=== PATIENT | male | born 1970 ===

== ENCOUNTER 2021-11-12 08:43 | Inpatient (IN) ==
[~2021-11-12 08:43] MED LIST: cefTRIAXone 1,000 MG in SODIUM CHLORIDE 0.9% 100 ML IV ONE
[2021-11-12 08:55] LABS: Basophils % 0.2 % (0.0-0.8); Hematocrit 36.7 VOL% (42.0-52.0); Hemoglobin 12.1 GM/DL (14.0-18.0); Lymphocytes # 1.5 10*3/uL (1.4-4.0); Lymphocytes % 8.9 % (21.2-54.2); Mean Corpuscular Volume 80.3 FL (87-102); Mean Platelet Volume 9.3 FL (9.6-12.0); Monocytes % 2.6 % (1.7-12.7); Neutrophils % 87.5 % (38.7-73.9); Platelet Count 169 T/CUMM (130-400); Red Blood Count 4.57 MC/CUMM (3.8-5.5); Red Cell Distribution Width 18.6 % (9.3-17.3); White Blood Count 16.8 T/CUMM (4-12)
[2021-11-12 09:29] LABS: Lymphocytes 7 % (20-55); Platelet Estimate Adequate; Segmented Neutrophils 91 % (50-85)
[2021-11-12 09:30] LABS: Albumin 2.6 G/DL (3.4-5.0); Bilirubin,Total 0.6 MG/DL (0.20-1.00); Calcium 9.3 MG/DL (8.5-10.1); Osmolality,Calculated 337.1 MOS/KG (273-304); Total Protein 7.8 G/DL (6.4-8.2)
[2021-11-12 09:36] LABS: Potassium 7.2 MMOL/L (3.5-5.1)
[2021-11-12] MEDS ORDERED: DEXTROSE 50% 25 GM/50 ML SYRINGE IV ONE ×2 (10:12→18:30)
[2021-11-12] MEDS ORDERED: DEXTROSE 50% 25 GM/50 ML VIAL IV ONE (10:17)
[2021-11-12] MEDS ORDERED: SODIUM CHLORIDE 0.9% 250 ML IV SCH (10:30)
[2021-11-12 10:42] LABS: Albumin 2.7 G/DL (3.4-5.0); Bilirubin,Total 0.4 MG/DL (0.20-1.00); Calcium 9.4 MG/DL (8.5-10.1); Total Protein 8.1 G/DL (6.4-8.2)
[2021-11-12 10:45] LABS: Potassium 7.4 MMOL/L (3.5-5.1)
[2021-11-12 10:54] LABS: Osmolality,Calculated 335.2 MOS/KG (273-304)
[2021-11-12] MEDS ORDERED: DEXTROSE 50% 25 GM/50 ML VIAL IV STA (11:28)
[2021-11-12] MEDS ORDERED: INSULIN REGULAR 100 UNIT/ML IV ONE ×2 (11:29→18:10)
[2021-11-12] MEDS ORDERED: SODIUM BICARBONATE 50 MEQ/50 ML VIAL IV STA (11:30)
[2021-11-12] MEDS ORDERED: INSULIN REGULAR 10 UNIT, CALCIUM GLUCONATE 1,000 MG in DEXTROSE 10% 250 ML IV ONE (11:30)
[2021-11-12] MEDS ORDERED: CALCIUM CHLORIDE 1,000 MG in SODIUM CHLORIDE 0.9% 100 ML IV ONE (11:30)
[2021-11-12] MEDS ORDERED: DEXTROSE 50% 25 GM/50 ML SYRINGE IV STA (11:32)
[2021-11-12] MEDS ORDERED: CALCIUM GLUCONATE RIDER 1,000 MG/50 ML PREMIX IV ONE (12:00)
[2021-11-12] MEDS: SODIUM ZIRCONIUM CYCLOSILICATE 10 GM PACK PO SCH ×3 (12:20→20:50)
[2021-11-12] MEDS ORDERED: ALBUTEROL 2.5 MG/3 ML NEB RESP TX PRN (12:27)
[2021-11-12] MEDS ORDERED: hydrALAZINE 20 MG/1 ML VIAL IV PRN ×2 (12:27→17:54)
[2021-11-12] MEDS ORDERED: ONDANSETRON 4 MG/2 ML VIAL IV PRN (12:27)
[2021-11-12] MEDS ORDERED: SODIUM CHLORIDE 0.9% 1,000 ML IV SCH (12:30)
[2021-11-12] MEDS ORDERED: LEVALBUTEROL TARTRATE INH PRN (12:31)
[2021-11-12] MEDS ORDERED: SODIUM CHLORIDE 0.9% 500 ML IV ONE (12:33)
[2021-11-12 14:12] LABS: Calcium 9.6 MG/DL (8.5-10.1); Osmolality,Calculated 333.4 MOS/KG (273-304)
[2021-11-12 14:13] LABS: Risk Ratio 2.93; VLDL Cholesterol 6.4 MG/DL
[2021-11-12 14:22] LABS: Potassium 6.3 MMOL/L (3.5-5.1)
[2021-11-12 14:46] LABS: Bacteria,Urine Occasional /HPF (Few); Bilirubin,Urine Negative (Negative); Blood, Urine Moderate mg/dL (Negative); Glucose,Urine (UA) Negative (Negative); Ketones,Urine Negative (Negative); Mucus,Urine Occasional /LPF (Occasional); Nitrite,Urine Negative (Negative); Protein,Urine 30 MG/DL; RBC,Urine 53 /HPF (0-4); Urine Appearance CLEAR (Clear); Urine Color Straw (Yellow); Urine Urobilinogen < 2.0 EU/DL (<2.0)
[2021-11-12] MEDS: HEPARIN 5,000 UNIT/1 ML VIAL SUBCUT SCH (15:57)
[2021-11-12] MEDS: SODIUM CHLORIDE 23.4% CONC INJ 38.5 MEQ, SODIUM BICARB INJ 100 MEQ in STERILE WATER INJ... IV SCH (16:42)
[2021-11-12 17:47] LABS: Calcium 9.2 MG/DL (8.5-10.1); Osmolality,Calculated 328.7 MOS/KG (273-304)
[2021-11-12] MEDS ORDERED: hydrALAZINE 20 MG/1 ML VIAL IV ONE (17:53)
[2021-11-12 18:07] LABS: Potassium 6.8 MMOL/L (3.5-5.1)
[2021-11-12] MEDS ORDERED: SODIUM BICARBONATE 50 MEQ/50 ML VIAL IV ONE (18:10)
[2021-11-12] MEDS: cloNIDine 0.1 MG TABLET PO SCH (18:51)
[2021-11-13] MEDS: SODIUM CHLORIDE 23.4% CONC INJ 38.5 MEQ, SODIUM BICARB INJ 100 MEQ in STERILE WATER INJ... IV SCH (01:39)
[2021-11-13] MEDS: cloNIDine 0.1 MG TABLET PO SCH ×3 (02:44→17:40)
[2021-11-13] MEDS: HEPARIN 5,000 UNIT/1 ML VIAL SUBCUT SCH ×2 (02:44→11:50)
[2021-11-13 05:29] LABS: Basophils % 0.1 % (0.0-0.8); Hematocrit 31.8 VOL% (42.0-52.0); Hemoglobin 10.9 GM/DL (14.0-18.0); Lymphocytes # 1.7 10*3/uL (1.4-4.0); Lymphocytes % 8.3 % (21.2-54.2); Mean Corpuscular HGB Conc 34.3 GM/DL (32-36); Mean Corpuscular Volume 77.9 FL (87-102); Monocytes % 4.3 % (1.7-12.7); Neutrophils % 86.3 % (38.7-73.9); Platelet Count 163 T/CUMM (130-400); Red Blood Count 4.08 MC/CUMM (3.8-5.5); Red Cell Distribution Width 18.1 % (9.3-17.3); White Blood Count 20.5 T/CUMM (4-12)
[2021-11-13 05:54] LABS: Calcium 8.2 MG/DL (8.5-10.1); Osmolality,Calculated 322.4 MOS/KG (273-304); Potassium 5.7 MMOL/L (3.5-5.1)
[2021-11-13 06:15] LABS: Burr Cells Slight; Hypochromia Slight; Lymphocytes 7 % (20-55); Microcytosis Slight; Ovalocytes Slight; Platelet Estimate Adequate; Segmented Neutrophils 92 % (50-85); Total Cells Counted 100
[2021-11-13] MEDS: SODIUM ZIRCONIUM CYCLOSILICATE 10 GM PACK PO SCH ×2 (08:43→16:32)
[2021-11-13] MEDS: PANTOPRAZOLE 40 MG TABLET PO SCH (08:44)
[2021-11-13] MEDS: amLODIPine 10 MG TABLET PO SCH (08:44)
[2021-11-13] MEDS: cefTRIAXone 1,000 MG in SODIUM CHLORIDE 0.9% 100 ML IV SCH (09:13)
[2021-11-13] MEDS: SODIUM BICARB INJ 150 MEQ in STERILE WATER INJ 850 ML IV SCH ×2 (09:14→17:35)
[2021-11-13 10:05] LABS: INR 1.1
[2021-11-13] MEDS ORDERED: DIAZEPAM 5 MG TABLET PO ONE (13:47)
[2021-11-13] MEDS ORDERED: MIDAZOLAM 2 MG/2 ML VIAL IV ONE (14:00)
[2021-11-13] MEDS ORDERED: fentaNYL 100 MCG/2 ML VIAL IV ONE (14:00)
[2021-11-13] MEDS ORDERED: MIDAZOLAM 2 MG/2 ML VIAL ONE (14:23)
[2021-11-13] MEDS ORDERED: fentaNYL 100 MCG/2 ML VIAL ONE (14:23)
[2021-11-13] MEDS ORDERED: POTASSIUM CHLORIDE 20 MEQ TABLET PO PRN (18:05)
[2021-11-13] MEDS ORDERED: MAGNESIUM SULF RIDER 2 GM/50 ML PREMIX IV PRN (18:06)
[2021-11-13 18:49] LABS: Alanine Aminotransferase 32 U/L (16-61); Albumin 2.6 G/DL (3.4-5.0); Alkaline Phosphatase 63 U/L (45-117); Aspartate Amino Transferase 25 U/L (0-37); Bilirubin,Total < 0.39 MG/DL (0.20-1.00); Blood Urea Nitrogen 189 MG/DL (7-18); Calcium 8.4 MG/DL (8.5-10.1); Carbon Dioxide 20 MMOL/L (21-32); Estimated Glom Filtration Rate 6 ML/MIN; Glucose 141 MG/DL (74-106); Osmolality,Calculated 334.1 MOS/KG (273-304); Potassium 4.7 MMOL/L (3.5-5.1); Sodium 135 MMOL/L (136-145); Total Protein 7.1 G/DL (6.4-8.2)
[2021-11-13 22:29] LABS: Calcium 7.9 MG/DL (8.5-10.1); Osmolality,Calculated 321.7 MOS/KG (273-304); Potassium 4.9 MMOL/L (3.5-5.1)
[2021-11-14] MEDS: cloNIDine 0.1 MG TABLET PO SCH ×3 (01:19→17:55)
[2021-11-14] MEDS: HEPARIN 5,000 UNIT/1 ML VIAL SUBCUT SCH ×3 (01:20→23:49)
[2021-11-14 02:17] LABS: Basophils % 0.1 % (0.0-0.8); Eosinophils % 0.3 % (0.00-10.9); Hematocrit 31.7 VOL% (42.0-52.0); Immature Granulocytes % 0.7 %; Lymphocytes # 1.8 10*3/uL (1.4-4.0); Mean Corpuscular HGB Conc 34.7 GM/DL (32-36); Mean Corpuscular Volume 76.8 FL (87-102); Mean Platelet Volume 10.3 FL (9.6-12.0); Monocytes % 5.9 % (1.7-12.7); Platelet Count 180 T/CUMM (130-400); Red Blood Count 4.13 MC/CUMM (3.8-5.5); Red Cell Distribution Width 18.1 % (9.3-17.3); White Blood Count 14.1 T/CUMM (4-12)
[2021-11-14 02:39] LABS: Potassium 4.6 MMOL/L (3.5-5.1)
[2021-11-14] MEDS: SODIUM BICARB INJ 150 MEQ in STERILE WATER INJ 850 ML IV SCH (02:50)
[2021-11-14 03:19] LABS: Acanthocytes 1+
[2021-11-14 05:53] LABS: Osmolality,Calculated 335.7 MOS/KG (273-304); Potassium 4.5 MMOL/L (3.5-5.1)
[2021-11-14] MEDS: amLODIPine 10 MG TABLET PO SCH (08:04)
[2021-11-14] MEDS: PANTOPRAZOLE 40 MG TABLET PO SCH (08:04)
[2021-11-14] MEDS: cefTRIAXone 1,000 MG in SODIUM CHLORIDE 0.9% 100 ML IV SCH (08:05)
[2021-11-14] MEDS: ACETAMINOPHEN 325 MG TABLET PO PRN (08:10)
[2021-11-14] MEDS: SODIUM CHLORIDE 0.45% 1,000 ML IV SCH ×2 (08:59→17:03)
[2021-11-14 10:31] LABS: Calcium 7.9 MG/DL (8.5-10.1); Potassium 4.3 MMOL/L (3.5-5.1)
[2021-11-14 14:21] LABS: Calcium 7.4 MG/DL (8.5-10.1); Osmolality,Calculated 328.7 MOS/KG (273-304); Potassium 4.5 MMOL/L (3.5-5.1)
[2021-11-14 18:46] LABS: Calcium 7.7 MG/DL (8.5-10.1); Osmolality,Calculated 318.1 MOS/KG (273-304); Potassium 4.4 MMOL/L (3.5-5.1)
[2021-11-14 23:02] LABS: Calcium 7.3 MG/DL (8.5-10.1); Osmolality,Calculated 324.8 MOS/KG (273-304); Potassium 4.4 MMOL/L (3.5-5.1)
[2021-11-15] MEDS: SODIUM CHLORIDE 0.45% 1,000 ML IV SCH ×3 (00:14→20:53)
[2021-11-15] MEDS: cloNIDine 0.1 MG TABLET PO SCH ×3 (02:52→17:00)
[2021-11-15 05:27] LABS: Basophils % 0.2 % (0.0-0.8); Eosinophils % 0.3 % (0.00-10.9); Hematocrit 29.7 VOL% (42.0-52.0); Hemoglobin 9.7 GM/DL (14.0-18.0); Immature Granulocytes % 0.7 %; Immature Granulocytes Absolute 0.09 #; Lymphocytes # 2.3 10*3/uL (1.4-4.0); Lymphocytes % 18.8 % (21.2-54.2); Mean Corpuscular HGB Conc 32.7 GM/DL (32-36); Mean Corpuscular Volume 80.1 FL (87-102); Mean Platelet Volume 10.5 FL (9.6-12.0); Monocytes % 12.2 % (1.7-12.7); Neutrophils % 67.8 % (38.7-73.9); Platelet Count 179 T/CUMM (130-400); Red Blood Count 3.71 MC/CUMM (3.8-5.5); Red Cell Distribution Width 18.1 % (9.3-17.3); White Blood Count 12.1 T/CUMM (4-12)
[2021-11-15 05:52] LABS: Calcium 7.9 MG/DL (8.5-10.1); Osmolality,Calculated 319.5 MOS/KG (273-304); Potassium 4.4 MMOL/L (3.5-5.1)
[2021-11-15 06:10] LABS: Acanthocytes Few; Anisocytosis 1+; Burr Cells Few; Platelet Estimate Normal; Poikilocytosis 1+
[2021-11-15] MEDS ORDERED: SODIUM CHLORIDE 0.45% 1,000 ML IV SCH (10:30)
[2021-11-15] MEDS ORDERED: DIAZEPAM 5 MG TABLET PO ONE (11:30)
[2021-11-15] MEDS ORDERED: fentaNYL 100 MCG/2 ML VIAL IV ONE (12:00)
[2021-11-15] MEDS ORDERED: MIDAZOLAM 2 MG/2 ML VIAL IV ONE (12:00)
[2021-11-15] MEDS: cefTRIAXone 1,000 MG in SODIUM CHLORIDE 0.9% 100 ML IV SCH (12:02)
[2021-11-15] MEDS: PANTOPRAZOLE 40 MG TABLET PO SCH (14:17)
[2021-11-15] MEDS: amLODIPine 10 MG TABLET PO SCH (14:17)
[2021-11-15] MEDS: HEPARIN 5,000 UNIT/1 ML VIAL SUBCUT SCH (17:00)
[2021-11-15] MEDS: SODIUM BICARBONATE 650 MG TABLET PO SCH (20:53)
[2021-11-16] MEDS: cloNIDine 0.1 MG TABLET PO SCH ×4 (02:27→18:19)
[2021-11-16] MEDS: SODIUM CHLORIDE 0.45% 1,000 ML IV SCH ×3 (02:43→23:22)
[2021-11-16 05:14] LABS: Basophils # 0.1 10*3/uL (0.0-0.2); Basophils % 0.4 % (0.0-0.8); Eosinophils # 0.2 10*3/uL (0.0-0.87); Eosinophils % 1.2 % (0.00-10.9); Hematocrit 29.8 VOL% (42.0-52.0); Hemoglobin 9.7 GM/DL (14.0-18.0); Immature Granulocytes % 0.7 %; Immature Granulocytes Absolute 0.08 #; Lymphocytes # 2.5 10*3/uL (1.4-4.0); Lymphocytes % 20.3 % (21.2-54.2); Mean Corpuscular HGB Conc 32.6 GM/DL (32-36); Mean Corpuscular Volume 81.4 FL (87-102); Monocytes % 10.1 % (1.7-12.7); Neutrophils % 67.3 % (38.7-73.9); Platelet Count 173 T/CUMM (130-400); Red Blood Count 3.66 MC/CUMM (3.8-5.5); Red Cell Distribution Width 18.3 % (9.3-17.3); White Blood Count 12.1 T/CUMM (4-12)
[2021-11-16 05:40] LABS: Calcium 8.6 MG/DL (8.5-10.1); Osmolality,Calculated 295.4 MOS/KG (273-304); Potassium 4.5 MMOL/L (3.5-5.1)
[2021-11-16] MEDS: HEPARIN 5,000 UNIT/1 ML VIAL SUBCUT SCH ×2 (06:13→18:18)
[2021-11-16] MEDS: amLODIPine 10 MG TABLET PO SCH (09:02)
[2021-11-16] MEDS: PANTOPRAZOLE 40 MG TABLET PO SCH (09:02)
[2021-11-16] MEDS: cefTRIAXone 1,000 MG in SODIUM CHLORIDE 0.9% 100 ML IV SCH (09:02)
[2021-11-16] MEDS: SODIUM BICARBONATE 650 MG TABLET PO SCH ×2 (09:02→20:52)
[2021-11-17] MEDS: cloNIDine 0.1 MG TABLET PO SCH ×3 (02:29→17:30)
[2021-11-17] MEDS: HEPARIN 5,000 UNIT/1 ML VIAL SUBCUT SCH (06:00)
[2021-11-17] MEDS: SODIUM BICARBONATE 650 MG TABLET PO SCH ×2 (08:49→21:18)
[2021-11-17] MEDS: PANTOPRAZOLE 40 MG TABLET PO SCH (08:49)
[2021-11-17] MEDS: amLODIPine 10 MG TABLET PO SCH (08:49)
[2021-11-17] MEDS: cefTRIAXone 1,000 MG in SODIUM CHLORIDE 0.9% 100 ML IV SCH (09:44)
[2021-11-17] MEDS: SODIUM CHLORIDE 0.45% 1,000 ML IV SCH (17:28)
[2021-11-18] MEDS: cloNIDine 0.1 MG TABLET PO SCH ×2 (02:50→09:43)
[2021-11-18] MEDS: SODIUM CHLORIDE 0.45% 1,000 ML IV SCH (04:30)
[2021-11-18 07:05] LABS: Basophils % 0.3 % (0.0-0.8); Eosinophils # 0.1 10*3/uL (0.0-0.87); Eosinophils % 0.8 % (0.00-10.9); Hematocrit 26.4 VOL% (42.0-52.0); Hemoglobin 8.5 GM/DL (14.0-18.0); Immature Granulocytes % 0.7 %; Immature Granulocytes Absolute 0.09 #; Lymphocytes # 2.1 10*3/uL (1.4-4.0); Lymphocytes % 16.4 % (21.2-54.2); Mean Corpuscular HGB Conc 32.2 GM/DL (32-36); Mean Platelet Volume 10.2 FL (9.6-12.0); Monocytes % 10.4 % (1.7-12.7); Neutrophils % 71.4 % (38.7-73.9); Platelet Count 227 T/CUMM (130-400); Red Blood Count 3.18 MC/CUMM (3.8-5.5); Red Cell Distribution Width 17.8 % (9.3-17.3)
[2021-11-18 07:29] LABS: Calcium 8.7 MG/DL (8.5-10.1); Osmolality,Calculated 276.7 MOS/KG (273-304); Potassium 4.1 MMOL/L (3.5-5.1)
[2021-11-18] MEDS: cefTRIAXone 1,000 MG in SODIUM CHLORIDE 0.9% 100 ML IV SCH (09:43)
[2021-11-18] MEDS: SODIUM BICARBONATE 650 MG TABLET PO SCH ×2 (09:43→21:56)
[2021-11-18] MEDS: PANTOPRAZOLE 40 MG TABLET PO SCH (09:43)
[2021-11-18] MEDS: amLODIPine 10 MG TABLET PO SCH (09:43)
[2021-11-18] MEDS ORDERED: GLUCAGON 1 MG VIAL IM PRN (11:46)
[2021-11-18] MEDS ORDERED: DEXTROSE 10% 25 GM/250 ML BAG IV PRN (11:50)
[2021-11-18] MEDS: SODIUM BICARB INJ 100 MEQ in SODIUM CHLORIDE 0.45% 1,000 ML IV SCH (11:59)
[2021-11-18] MEDS: INSULIN LISPRO 100 UNIT/ML SUBCUT SCH ×3 (11:59→22:12)
[2021-11-19] MEDS: SODIUM BICARB INJ 100 MEQ in SODIUM CHLORIDE 0.45% 1,000 ML IV SCH (02:56)
[2021-11-19 06:46] LABS: Basophils % 0.2 % (0.0-0.8); Eosinophils # 0.1 10*3/uL (0.0-0.87); Eosinophils % 0.4 % (0.00-10.9); Hematocrit 25.1 VOL% (42.0-52.0); Immature Granulocytes % 0.5 %; Immature Granulocytes Absolute 0.06 #; Lymphocytes # 1.5 10*3/uL (1.4-4.0); Lymphocytes % 12.1 % (21.2-54.2); Mean Corpuscular HGB Conc 31.9 GM/DL (32-36); Mean Corpuscular Volume 82.8 FL (87-102); Mean Platelet Volume 9.7 FL (9.6-12.0); Monocytes % 9.5 % (1.7-12.7); Neutrophils % 77.3 % (38.7-73.9); Platelet Count 252 T/CUMM (130-400); Red Blood Count 3.03 MC/CUMM (3.8-5.5); Red Cell Distribution Width 17.3 % (9.3-17.3)
[2021-11-19 07:07] LABS: Calcium 9.4 MG/DL (8.5-10.1); Osmolality,Calculated 269.9 MOS/KG (273-304); Potassium 4.6 MMOL/L (3.5-5.1)
[2021-11-19] MEDS: INSULIN LISPRO 100 UNIT/ML SUBCUT SCH ×4 (09:20→21:53)
[2021-11-19] MEDS: PANTOPRAZOLE 40 MG TABLET PO SCH (09:23)
[2021-11-19] MEDS: SODIUM BICARBONATE 650 MG TABLET PO SCH ×3 (09:23→21:55)
[2021-11-19] MEDS: cefTRIAXone 1,000 MG in SODIUM CHLORIDE 0.9% 100 ML IV SCH (09:23)
[2021-11-19] MEDS: amLODIPine 10 MG TABLET PO SCH (09:23)
[2021-11-19] MEDS: ACETAMINOPHEN 325 MG TABLET PO PRN (21:53)
[2021-11-19] MEDS: LEVOFLOXACIN 500 MG TABLET PO SCH (21:54)
[2021-11-20 05:34] LABS: Basophils # 0.1 10*3/uL (0.0-0.2); Basophils % 0.3 % (0.0-0.8); Eosinophils # 0.1 10*3/uL (0.0-0.87); Eosinophils % 0.6 % (0.00-10.9); Hematocrit 27.9 VOL% (42.0-52.0); Hemoglobin 9.1 GM/DL (14.0-18.0); Immature Granulocytes % 0.6 %; Immature Granulocytes Absolute 0.08 #; Lymphocytes # 1.5 10*3/uL (1.4-4.0); Mean Corpuscular HGB Conc 32.6 GM/DL (32-36); Mean Corpuscular Volume 82.3 FL (87-102); Mean Platelet Volume 9.3 FL (9.6-12.0); Monocytes % 8.2 % (1.7-12.7); Neutrophils % 80.3 % (38.7-73.9); Platelet Count 332 T/CUMM (130-400); Red Blood Count 3.39 MC/CUMM (3.8-5.5); Red Cell Distribution Width 17.2 % (9.3-17.3); White Blood Count 14.4 T/CUMM (4-12)
[2021-11-20 05:57] LABS: Calcium 8.8 MG/DL (8.5-10.1); Osmolality,Calculated 277.5 MOS/KG (273-304); Potassium 4.8 MMOL/L (3.5-5.1)
[2021-11-20 05:59] LABS: Alanine Aminotransferase 34 U/L (16-61); Albumin 2.8 G/DL (3.4-5.0); Alkaline Phosphatase 68 U/L (45-117); Aspartate Amino Transferase 29 U/L (0-37); Bilirubin,Total < 0.39 MG/DL (0.20-1.00); Blood Urea Nitrogen 55 MG/DL (7-18); Calcium 9.2 MG/DL (8.5-10.1); Carbon Dioxide 22 MMOL/L (21-32); Estimated Glom Filtration Rate 30 ML/MIN; Glucose 102 MG/DL (74-106); Osmolality,Calculated 274.8 MOS/KG (273-304); Potassium 5.1 MMOL/L (3.5-5.1); Sodium 130 MMOL/L (136-145); Total Protein 7.7 G/DL (6.4-8.2)
[2021-11-20] MEDS ORDERED: SODIUM PHOSPHATE ENEMA 133 ML BOTTLE RECTAL ONE (07:00)
[2021-11-20] MEDS: INSULIN LISPRO 100 UNIT/ML SUBCUT SCH ×4 (07:26→20:31)
[2021-11-20] MEDS: LEVOFLOXACIN 500 MG TABLET PO SCH (09:36)
[2021-11-20] MEDS: PANTOPRAZOLE 40 MG TABLET PO SCH (09:36)
[2021-11-20] MEDS: amLODIPine 10 MG TABLET PO SCH (09:36)
[2021-11-20] MEDS: SODIUM BICARBONATE 650 MG TABLET PO SCH ×3 (09:37→20:35)
[2021-11-20] MEDS: cefTRIAXone 1,000 MG in SODIUM CHLORIDE 0.9% 100 ML IV SCH (09:57)
[2021-11-20] MEDS ORDERED: MIDAZOLAM 2 MG/2 ML VIAL ONE (12:04)
[2021-11-20] MEDS ORDERED: fentaNYL 100 MCG/2 ML VIAL ONE ×2 (12:04→13:34)
[2021-11-20] MEDS ORDERED: SEVOFLURANE 1 UNIT/15 MINUTE INH ONE ×9 (12:05→14:40)
[2021-11-20] MEDS ORDERED: propofoL 200 MG/20 ML VIAL IV ONE (12:05)
[2021-11-20] MEDS ORDERED: LIDOCAINE 2% 5 ML VIAL ONE (12:05)
[2021-11-20] MEDS ORDERED: ONDANSETRON 4 MG/2 ML VIAL ONE (12:05)
[2021-11-20] MEDS ORDERED: NEOMYCIN/POLYMYXIN IRRIG SOLN 1 ML AMP BLADDERIRR ONE (12:55)
[2021-11-20] MEDS ORDERED: PHENYLEPHRINE 10 MG/1 ML VIAL IV ONE (12:57)
[2021-11-20] MEDS ORDERED: LEVOFLOXACIN INJ 500 MG/100 ML PREMIX IV ONE (12:58)
[2021-11-20] MEDS ORDERED: SODIUM CHLORIDE 0.9% 1,000 ML IV SCH (13:00)
[2021-11-20] MEDS ORDERED: METHYLENE BLUE 10 ML VIAL IV ONE (13:14)
[2021-11-20] MEDS ORDERED: SODIUM CHLORIDE 0.9% 250 ML IV ONE (14:30)
[2021-11-20] MEDS ORDERED: ACETAMINOPHEN INJ 1,000 MG/100 ML VIAL IV ONE (14:31)
[2021-11-20 14:41] LABS: Calcium 8.6 MG/DL (8.5-10.1); Osmolality,Calculated 282.2 MOS/KG (273-304); Potassium 5.9 MMOL/L (3.5-5.1)
[2021-11-20 15:22] LABS: Basophils % 0.1 % (0.0-0.8); Eosinophils % 0.2 % (0.00-10.9); Hematocrit 26.3 VOL% (42.0-52.0); Hemoglobin 8.3 GM/DL (14.0-18.0); Immature Granulocytes % 0.5 %; Immature Granulocytes Absolute 0.07 #; Lymphocytes # 1.4 10*3/uL (1.4-4.0); Lymphocytes % 10.3 % (21.2-54.2); Mean Corpuscular HGB Conc 31.6 GM/DL (32-36); Mean Corpuscular Volume 84.6 FL (87-102); Mean Platelet Volume 9.5 FL (9.6-12.0); Monocytes % 9.2 % (1.7-12.7); Neutrophils % 79.7 % (38.7-73.9); Platelet Count 330 T/CUMM (130-400); Red Blood Count 3.11 MC/CUMM (3.8-5.5); Red Cell Distribution Width 17.4 % (9.3-17.3); White Blood Count 13.8 T/CUMM (4-12)
[2021-11-20] MEDS: ALBUTEROL 2.5 MG/3 ML NEB RESP TX SCH ×2 (17:05→19:35)
[2021-11-20] MEDS: ACETAMINOPHEN 325 MG TABLET PO PRN (20:36)
[2021-11-20] MEDS ORDERED: LEVOFLOXACIN 500 MG TABLET PO SCH (21:00)
[2021-11-21] MEDS: ALBUTEROL 2.5 MG/3 ML NEB RESP TX SCH ×5 (00:17→19:26)
[2021-11-21 04:42] LABS: Basophils % 0.2 % (0.0-0.8); Eosinophils % 0.2 % (0.00-10.9); Hematocrit 28.2 VOL% (42.0-52.0); Hemoglobin 9.1 GM/DL (14.0-18.0); Immature Granulocytes % 0.5 %; Lymphocytes # 1.2 10*3/uL (1.4-4.0); Lymphocytes % 6.4 % (21.2-54.2); Mean Corpuscular HGB Conc 32.3 GM/DL (32-36); Mean Corpuscular Volume 83.2 FL (87-102); Mean Platelet Volume 9.5 FL (9.6-12.0); Monocytes % 5.8 % (1.7-12.7); Neutrophils % 86.9 % (38.7-73.9); Platelet Count 374 T/CUMM (130-400); Red Blood Count 3.39 MC/CUMM (3.8-5.5); Red Cell Distribution Width 17.2 % (9.3-17.3); White Blood Count 19.1 T/CUMM (4-12)
[2021-11-21 05:01] LABS: Calcium 9.7 MG/DL (8.5-10.1); Osmolality,Calculated 271.1 MOS/KG (273-304); Potassium 5.2 MMOL/L (3.5-5.1)
[2021-11-21] MEDS ORDERED: MAGNESIUM SULF RIDER 2 GM/50 ML PREMIX IV PRN (06:58)
[2021-11-21] MEDS ORDERED: MAGNESIUM SULF RIDER 4 GM/100 ML PREMIX IV PRN (06:58)
[2021-11-21] MEDS: cefTRIAXone 1,000 MG in SODIUM CHLORIDE 0.9% 100 ML IV SCH (09:40)
[2021-11-21] MEDS: amLODIPine 10 MG TABLET PO SCH (09:40)
[2021-11-21] MEDS: PANTOPRAZOLE 40 MG TABLET PO SCH (09:40)
[2021-11-21] MEDS: SODIUM BICARBONATE 650 MG TABLET PO SCH ×3 (09:40→22:31)
[2021-11-21] MEDS: INSULIN LISPRO 100 UNIT/ML SUBCUT SCH ×4 (09:44→22:31)
[2021-11-21] MEDS: DOCUSATE SODIUM 100 MG CAPSULE PO PRN (22:32)
[2021-11-22] MEDS: ALBUTEROL 2.5 MG/3 ML NEB RESP TX SCH ×4 (01:11→19:56)
[2021-11-22 06:31] LABS: Basophils # 0.1 10*3/uL (0.0-0.2); Basophils % 0.4 % (0.0-0.8); Eosinophils # 0.1 10*3/uL (0.0-0.87); Eosinophils % 0.5 % (0.00-10.9); Hematocrit 27.4 VOL% (42.0-52.0); Hemoglobin 8.9 GM/DL (14.0-18.0); Immature Granulocytes % 0.5 %; Immature Granulocytes Absolute 0.09 #; Lymphocytes # 1.5 10*3/uL (1.4-4.0); Lymphocytes % 9.2 % (21.2-54.2); Mean Corpuscular HGB Conc 32.5 GM/DL (32-36); Mean Corpuscular Volume 82.8 FL (87-102); Mean Platelet Volume 9.3 FL (9.6-12.0); Monocytes % 8.2 % (1.7-12.7); Neutrophils % 81.2 % (38.7-73.9); Platelet Count 393 T/CUMM (130-400); Red Blood Count 3.31 MC/CUMM (3.8-5.5); Red Cell Distribution Width 16.9 % (9.3-17.3); White Blood Count 16.8 T/CUMM (4-12)
[2021-11-22 07:10] LABS: Calcium 9.5 MG/DL (8.5-10.1); Osmolality,Calculated 271.9 MOS/KG (273-304); Potassium 5.3 MMOL/L (3.5-5.1)
[2021-11-22] MEDS: amLODIPine 10 MG TABLET PO SCH (11:11)
[2021-11-22] MEDS: PANTOPRAZOLE 40 MG TABLET PO SCH (11:18)
[2021-11-22] MEDS: CITRIC ACID/SODIUM CITRATE 30 ML UDCUP PO SCH ×2 (11:18→21:44)
[2021-11-22] MEDS: cefTRIAXone 1,000 MG in SODIUM CHLORIDE 0.9% 100 ML IV SCH (11:20)
[2021-11-22] MEDS: INSULIN LISPRO 100 UNIT/ML SUBCUT SCH ×4 (11:24→21:36)
[2021-11-22] MEDS: SODIUM BICARBONATE 650 MG TABLET PO SCH (14:52)
[2021-11-22] MEDS: DOCUSATE SODIUM 100 MG CAPSULE PO PRN (21:41)
[2021-11-22] MEDS: BICALUTAMIDE 50 MG TABLET PO SCH (21:42)
[2021-11-23] MEDS: ALBUTEROL 2.5 MG/3 ML NEB RESP TX SCH ×4 (01:10→22:39)
[2021-11-23 05:45] LABS: Basophils # 0.1 10*3/uL (0.0-0.2); Basophils % 0.5 % (0.0-0.8); Eosinophils # 0.1 10*3/uL (0.0-0.87); Eosinophils % 1.2 % (0.00-10.9); Hemoglobin 8.8 GM/DL (14.0-18.0); Immature Granulocytes % 0.5 %; Immature Granulocytes Absolute 0.06 #; Lymphocytes # 1.4 10*3/uL (1.4-4.0); Lymphocytes % 11.9 % (21.2-54.2); Mean Corpuscular HGB Conc 32.6 GM/DL (32-36); Mean Corpuscular Volume 82.8 FL (87-102); Mean Platelet Volume 8.8 FL (9.6-12.0); Monocytes % 7.7 % (1.7-12.7); Neutrophils % 78.2 % (38.7-73.9); Platelet Count 414 T/CUMM (130-400); Red Blood Count 3.26 MC/CUMM (3.8-5.5); Red Cell Distribution Width 16.5 % (9.3-17.3)
[2021-11-23 05:52] LABS: Calcium 9.8 MG/DL (8.5-10.1); Osmolality,Calculated 272.1 MOS/KG (273-304); Potassium 4.5 MMOL/L (3.5-5.1)
[2021-11-23] MEDS: INSULIN LISPRO 100 UNIT/ML SUBCUT SCH ×4 (08:13→22:55)
[2021-11-23] MEDS: PANTOPRAZOLE 40 MG TABLET PO SCH (09:09)
[2021-11-23] MEDS: amLODIPine 10 MG TABLET PO SCH (09:09)
[2021-11-23] MEDS: cefTRIAXone 1,000 MG in SODIUM CHLORIDE 0.9% 100 ML IV SCH (09:10)
[2021-11-23] MEDS: CITRIC ACID/SODIUM CITRATE 30 ML UDCUP PO SCH ×2 (09:44→22:54)
[2021-11-23] MEDS: BICALUTAMIDE 50 MG TABLET PO SCH (09:44)
[2021-11-24] MEDS: ALBUTEROL 2.5 MG/3 ML NEB RESP TX SCH ×3 (04:56→13:59)
[2021-11-24 05:30] LABS: Basophils # 0.1 10*3/uL (0.0-0.2); Basophils % 0.6 % (0.0-0.8); Eosinophils # 0.2 10*3/uL (0.0-0.87); Eosinophils % 2.1 % (0.00-10.9); Hematocrit 26.7 VOL% (42.0-52.0); Hemoglobin 8.4 GM/DL (14.0-18.0); Immature Granulocytes % 0.5 %; Immature Granulocytes Absolute 0.05 #; Lymphocytes # 1.8 10*3/uL (1.4-4.0); Lymphocytes % 16.8 % (21.2-54.2); Mean Corpuscular HGB Conc 31.5 GM/DL (32-36); Mean Corpuscular Volume 85.3 FL (87-102); Monocytes % 9.3 % (1.7-12.7); Neutrophils % 70.7 % (38.7-73.9); Platelet Count 419 T/CUMM (130-400); Red Blood Count 3.13 MC/CUMM (3.8-5.5); Red Cell Distribution Width 16.6 % (9.3-17.3); White Blood Count 10.7 T/CUMM (4-12)
[2021-11-24 05:58] LABS: Calcium 8.9 MG/DL (8.5-10.1); Osmolality,Calculated 279.4 MOS/KG (273-304); Potassium 4.2 MMOL/L (3.5-5.1)
[2021-11-24] MEDS: PANTOPRAZOLE 40 MG TABLET PO SCH (09:12)
[2021-11-24] MEDS: cefTRIAXone 1,000 MG in SODIUM CHLORIDE 0.9% 100 ML IV SCH (09:12)
[2021-11-24] MEDS: amLODIPine 10 MG TABLET PO SCH (09:12)
[2021-11-24] MEDS: CITRIC ACID/SODIUM CITRATE 30 ML UDCUP PO SCH ×2 (09:38→22:08)
[2021-11-24] MEDS: INSULIN LISPRO 100 UNIT/ML SUBCUT SCH ×4 (09:38→22:58)
[2021-11-24] MEDS: BICALUTAMIDE 50 MG TABLET PO SCH ×2 (09:38→12:00)
[2021-11-25] MEDS: INSULIN LISPRO 100 UNIT/ML SUBCUT SCH ×4 (08:53→20:55)
[2021-11-25] MEDS: CITRIC ACID/SODIUM CITRATE 30 ML UDCUP PO SCH ×2 (08:54→20:55)
[2021-11-25] MEDS: BICALUTAMIDE 50 MG TABLET PO SCH (08:54)
[2021-11-25] MEDS: amLODIPine 10 MG TABLET PO SCH (08:55)
[2021-11-25] MEDS: PANTOPRAZOLE 40 MG TABLET PO SCH (08:56)
[2021-11-25] MEDS: cefTRIAXone 1,000 MG in SODIUM CHLORIDE 0.9% 100 ML IV SCH (10:27)
[2021-11-25] MEDS: MULTIVITAMIN (BEROCCA) TABLET PO SCH (13:41)
[2021-11-26 06:01] LABS: Calcium 9.4 MG/DL (8.5-10.1); Potassium 4.3 MMOL/L (3.5-5.1)
[2021-11-26] MEDS: INSULIN LISPRO 100 UNIT/ML SUBCUT SCH ×4 (07:36→22:49)
[2021-11-26] MEDS ORDERED: ROPIVACAINE 0.5% 30 ML VIAL ONE (08:18)
[2021-11-26] MEDS ORDERED: TISSUE ADHESIVE 1 EACH APPLICATOR TOP ONE (08:19)
[2021-11-26] MEDS ORDERED: BACITRACIN OINT 0.9 GM PACK TOP ONE (08:19)
[2021-11-26] MEDS ORDERED: propofoL 200 MG/20 ML VIAL IV ONE (08:20)
[2021-11-26] MEDS ORDERED: fentaNYL 100 MCG/2 ML VIAL ONE (08:20)
[2021-11-26] MEDS ORDERED: MIDAZOLAM 2 MG/2 ML VIAL ONE (08:20)
[2021-11-26] MEDS ORDERED: LIDOCAINE 2% 5 ML VIAL ONE (08:20)
[2021-11-26] MEDS ORDERED: LACTATED RINGERS 1,000 ML IV SCH (09:00)
[2021-11-26] MEDS ORDERED: ONDANSETRON 4 MG/2 ML VIAL ONE (09:10)
[2021-11-26] MEDS ORDERED: SEVOFLURANE 1 UNIT/15 MINUTE INH ONE ×6 (09:10)
[2021-11-26] MEDS ORDERED: ceFAZolin 1,000 MG VIAL ONE (09:11)
[2021-11-26] MEDS ORDERED: PHENYLEPHRINE 10 MG/1 ML VIAL IV ONE (09:13)
[2021-11-26 10:10] LABS: Basophils % 0.5 % (0.2-1.0); Eosinophils # 0.2 # (0.0-0.70); Hematocrit 22.7 VOL% (42.0-52.0); Hemoglobin 7.4 GM/DL (14.0-18.0); Lymphocytes # 1.4 # (1.3-2.9); Lymphocytes % 15.8 % (20.5-45.5); Mean Corpuscular HGB Conc 32.6 GM/DL (32-36); Mean Corpuscular Volume 83.8 FL (80-94); Mean Platelet Volume 9.1 FL (7.4-10.4); Monocytes % 10.3 % (5.5-11.7); Neutrophils % 70.9 % (43.0-65.0); Platelet Count 381 T/CUMM (130-400); Red Blood Count 2.71 MC/CUMM (4.70-6.10); Red Cell Distribution Width 16.5 % (11.5-15.5); White Blood Count 8.6 T/CUMM (4.8-10.8)
[2021-11-26] MEDS: BICALUTAMIDE 50 MG TABLET PO SCH (11:37)
[2021-11-26] MEDS: PANTOPRAZOLE 40 MG TABLET PO SCH (11:37)
[2021-11-26] MEDS: MULTIVITAMIN (BEROCCA) TABLET PO SCH (11:37)
[2021-11-26] MEDS: amLODIPine 10 MG TABLET PO SCH (11:37)
[2021-11-26] MEDS: CITRIC ACID/SODIUM CITRATE 30 ML UDCUP PO SCH (11:39)
[2021-11-26 16:36] LABS: Basophils % 0.4 % (0.0-0.8); Eosinophils # 0.1 10*3/uL (0.0-0.87); Eosinophils % 0.8 % (0.00-10.9); Hematocrit 23.9 VOL% (42.0-52.0); Hemoglobin 7.6 GM/DL (14.0-18.0); Immature Granulocytes % 0.5 %; Immature Granulocytes Absolute 0.06 #; Lymphocytes # 1.2 10*3/uL (1.4-4.0); Lymphocytes % 10.6 % (21.2-54.2); Mean Corpuscular HGB Conc 31.8 GM/DL (32-36); Mean Corpuscular Volume 85.7 FL (87-102); Mean Platelet Volume 9.1 FL (9.6-12.0); Monocytes % 9.4 % (1.7-12.7); Neutrophils % 78.3 % (38.7-73.9); Platelet Count 400 T/CUMM (130-400); Red Blood Count 2.79 MC/CUMM (3.8-5.5); Red Cell Distribution Width 16.3 % (9.3-17.3); White Blood Count 11.3 T/CUMM (4-12)
[2021-11-27 05:39] LABS: Basophils % 0.3 % (0.0-0.8); Eosinophils # 0.1 10*3/uL (0.0-0.87); Eosinophils % 1.4 % (0.00-10.9); Hematocrit 24.2 VOL% (42.0-52.0); Hemoglobin 7.5 GM/DL (14.0-18.0); Immature Granulocytes % 0.9 %; Immature Granulocytes Absolute 0.07 #; Lymphocytes # 1.4 10*3/uL (1.4-4.0); Lymphocytes % 18.3 % (21.2-54.2); Mean Corpuscular Volume 85.8 FL (87-102); Mean Platelet Volume 8.9 FL (9.6-12.0); Monocytes % 12.2 % (1.7-12.7); Neutrophils % 66.9 % (38.7-73.9); Platelet Count 382 T/CUMM (130-400); Red Blood Count 2.82 MC/CUMM (3.8-5.5); Red Cell Distribution Width 16.2 % (9.3-17.3); White Blood Count 7.7 T/CUMM (4-12)
[2021-11-27 05:55] LABS: Osmolality,Calculated 276.2 MOS/KG (273-304); Potassium 4.9 MMOL/L (3.5-5.1)
[2021-11-27] MEDS: ALBUTEROL 2.5 MG/3 ML NEB RESP TX SCH ×2 (07:40→09:24)
[2021-11-27] MEDS: INSULIN LISPRO 100 UNIT/ML SUBCUT SCH ×4 (07:41→21:20)
[2021-11-27] MEDS: cephALEXin 500 MG CAPSULE PO SCH ×2 (08:14→22:02)
[2021-11-27] MEDS: BICALUTAMIDE 50 MG TABLET PO SCH (08:14)
[2021-11-27] MEDS: BACITRACIN OINT 0.9 GM PACK TOP SCH ×3 (08:14→22:02)
[2021-11-27] MEDS: PANTOPRAZOLE 40 MG TABLET PO SCH (08:15)
[2021-11-27] MEDS: MULTIVITAMIN (BEROCCA) TABLET PO SCH (08:15)
[2021-11-27] MEDS: amLODIPine 10 MG TABLET PO SCH (08:15)
[2021-11-28] MEDS: INSULIN LISPRO 100 UNIT/ML SUBCUT SCH ×4 (07:53→22:34)
[2021-11-28] MEDS: MULTIVITAMIN (BEROCCA) TABLET PO SCH (09:06)
[2021-11-28] MEDS: cephALEXin 500 MG CAPSULE PO SCH ×2 (09:07→21:09)
[2021-11-28] MEDS: BICALUTAMIDE 50 MG TABLET PO SCH (09:07)
[2021-11-28] MEDS: PANTOPRAZOLE 40 MG TABLET PO SCH (09:07)
[2021-11-28] MEDS: amLODIPine 10 MG TABLET PO SCH (09:07)
[2021-11-28] MEDS: BACITRACIN OINT 0.9 GM PACK TOP SCH ×3 (09:08→21:09)
[2021-11-28 11:22] LABS: Basophils % 0.4 % (0.0-0.8); Eosinophils # 0.1 10*3/uL (0.0-0.87); Eosinophils % 1.3 % (0.00-10.9); Hematocrit 23.5 VOL% (42.0-52.0); Hemoglobin 7.5 GM/DL (14.0-18.0); Immature Granulocytes % 1.6 %; Immature Granulocytes Absolute 0.14 #; Lymphocytes # 1.2 10*3/uL (1.4-4.0); Lymphocytes % 13.6 % (21.2-54.2); Mean Corpuscular HGB Conc 31.9 GM/DL (32-36); Mean Corpuscular Volume 84.8 FL (87-102); Mean Platelet Volume 8.5 FL (9.6-12.0); Neutrophils % 70.1 % (38.7-73.9); Platelet Count 386 T/CUMM (130-400); Red Blood Count 2.77 MC/CUMM (3.8-5.5); Red Cell Distribution Width 16.7 % (9.3-17.3)
[2021-11-28 11:33] LABS: Calcium 9.1 MG/DL (8.5-10.1); Osmolality,Calculated 270.7 MOS/KG (273-304); Potassium 4.6 MMOL/L (3.5-5.1)
[2021-11-28 13:07] LABS: Folate > 24.00 NG/ML (5.38-24.0); Vitamin B12 571 PG/ML (211-911)
[2021-11-28 13:25] LABS: % Iron Saturation 12.5 % (18-50); Ferritin 683.2 ng/mL (26-388)
[2021-11-29] MEDS: INSULIN LISPRO 100 UNIT/ML SUBCUT SCH ×2 (08:06→12:02)
[2021-11-29] MEDS: BACITRACIN OINT 0.9 GM PACK TOP SCH ×2 (08:58→14:31)
[2021-11-29] MEDS: amLODIPine 10 MG TABLET PO SCH (08:59)
[2021-11-29] MEDS: MULTIVITAMIN (BEROCCA) TABLET PO SCH (08:59)
[2021-11-29] MEDS: BICALUTAMIDE 50 MG TABLET PO SCH (08:59)
[2021-11-29] MEDS: cephALEXin 500 MG CAPSULE PO SCH (08:59)
[2021-11-29] MEDS: PANTOPRAZOLE 40 MG TABLET PO SCH (09:00)
[2021-11-29 16:01] VITALS: BP 108/63
== END 2021-11-29 16:15 | DRG 666 ==
LOC: N.SDSINP 08:43 → N.OR 08:43 → N.SDSINP 08:44 → SUATTDRO 12:27 → N.SDSINP 12:27 → N.ICU 13:23 → N.3W 11-14 17:50
PROVIDERS: ADMIT Surgery; ATTEND Internal Medicine